=== PATIENT | male | born 1980 | race Caucasian/White ===

== ENCOUNTER 2020-07-23 18:09 | Inpatient (IN) | payer OTHER ==
[2020-07-23 19:35] VITALS: BMI 22.8
[2020-07-23] MEDS ORDERED: guaiFENesin 200 MG/10 ML 10 ML UNIT-DOSE CUPS PO PRN (20:08)
[2020-07-23] MEDS ORDERED: ACETAMINOPHEN 325 MG TABLET (FP) PO PRN ×2 (20:08)
[2020-07-23] MEDS ORDERED: MAGNESIUM HYDROX 2400MG/30ML ORAL SUSPENSION 30 ML CUP PO PRN (20:08)
[2020-07-23] MEDS ORDERED: NALOXONE (NARCAN) HCL 4 MG/0.1 ML SPRAY NS PRN (20:08)
[2020-07-23] MEDS ORDERED: IBUPROFEN 400 MG TABLET (FP) PO PRN (20:08)
[2020-07-23] MEDS ORDERED: NALOXONE HCL 0.4 MG/ML VIAL IM PRN (20:08)
[2020-07-23] MEDS ORDERED: MENTHOL/PHENOL 1 EACH UD MM PRN (20:08)
[2020-07-23] MEDS ORDERED: ONDANSETRON *ODT* 4 MG TABLET SL PRN (20:08)
[2020-07-23] MEDS ORDERED: MAG HYDROX/AL HYDROX/SIMETH 30 ML UNIT-DOSE CUP PO PRN (20:08)
[2020-07-23] MEDS ORDERED: P-EPHED 60MG/TRIPROLIDI 2.5MG TABLET PO PRN (20:08)
[2020-07-23] MEDS ORDERED: BISMUTH SUBSALICYLATE 524 MG/30 ML UD PO PRN (20:08)
[2020-07-23] MEDS ORDERED: DICYCLOMINE HCL 10 MG CAPSULE PO PRN (20:08)
[2020-07-23] MEDS ORDERED: MAGNESIUM CITRATE 300 ML BOTTLE PO PRN (20:08)
[2020-07-23] MEDS: MELATONIN 5 MG TABLETS PO SCH (22:23)
[2020-07-23] MEDS: GABAPENTIN 400 MG CAPSULE PO SCH (22:23)
[2020-07-23] MEDS: THIAMINE HCL 100 MG TABLET (FP) PO SCH (22:23)
[2020-07-24] MEDS: GABAPENTIN 400 MG CAPSULE PO SCH ×3 (05:14→22:00)
[2020-07-24] MEDS ORDERED: METHADONE HCL 10 MG TABLET PO SCH (07:45)
[2020-07-24] MEDS ORDERED: METHADONE 200 MG, METHADONE 10 MG PO ONE (08:00)
[2020-07-24] MEDS ORDERED: METHADONE HCL 10 MG TABLET ONE (08:45)
[2020-07-24] MEDS ORDERED: METHADONE HCL 40 MG DISPERSABLE TABLET ONE (08:46)
[2020-07-24] MEDS ORDERED: LORazepam 1 MG TABLET PO PRN (09:19)
[2020-07-24] MEDS: NICOTINE 21 MG/24 HOURS TOPICAL PATCH TD SCH (09:23)
[2020-07-24] MEDS: PRENATAL VITAMINS W/ FOLIC ACID TABLET (FP) PO SCH (09:25)
[2020-07-24 10:03] LABS: HEMATOCRIT 37.4 % (35.4-49); HEMOGLOBIN 12.7 GM/dL (11.7-16.9); MCH 28.9 pg (25.7-33.7); MCHC 34.1 g/dl (32.0-35.9); MEAN CELL VOLUME 84.6 fl (80-96); PLATELET COUNT 253 K/MM3 (134-434); RBC 4.42 M/mm3 (4.00-5.60); RDW 13.5 % (11.9-15.9); WHITE BLOOD COUNT 6.5 K/mm3 (4.0-10.0)
[2020-07-24 10:04] LABS: ALBUMIN 3.4 g/dl (3.4-5.0); CALCIUM 8.6 mg/dL (8.5-10.1)
[2020-07-24 10:05] LABS: BLOOD UREA NITROGEN 13.6 mg/dL (7-18)
[2020-07-24 10:07] LABS: BILIRUBIN,TOTAL 0.3 mg/dL (0.2-1)
[2020-07-24] MEDS: LORazepam 2 MG TABLET PO SCH ×3 (10:07→22:00)
[2020-07-24 10:08] LABS: CREATININE 0.7 mg/dL (0.55-1.3); TOT PROT 7.3 g/dl (6.4-8.2)
[2020-07-24] MEDS: THIAMINE HCL 100 MG TABLET (FP) PO SCH (22:01)
[2020-07-24] MEDS: MELATONIN 5 MG TABLETS PO SCH (22:01)
[2020-07-25] MEDS ORDERED: METHADONE HCL 10 MG TABLET ONE (05:03)
[2020-07-25] MEDS ORDERED: METHADONE HCL 40 MG DISPERSABLE TABLET ONE (05:04)
[2020-07-25] MEDS: METHADONE 200 MG, METHADONE 10 MG PO SCH (05:16)
[2020-07-25] MEDS: GABAPENTIN 400 MG CAPSULE PO SCH ×3 (05:16→22:14)
[2020-07-25] MEDS: LORazepam 2 MG TABLET PO SCH ×4 (05:17→22:15)
[2020-07-25] MEDS: PRENATAL VITAMINS W/ FOLIC ACID TABLET (FP) PO SCH (09:36)
[2020-07-25] MEDS: NICOTINE 21 MG/24 HOURS TOPICAL PATCH TD SCH (09:39)
[2020-07-25] MEDS: MELATONIN 5 MG TABLETS PO SCH (22:14)
[2020-07-25] MEDS: THIAMINE HCL 100 MG TABLET (FP) PO SCH (22:15)
[2020-07-25] MEDS: NICOTINE POLACRILEX 2 MG GUM BUC PRN (22:55)
[2020-07-26] MEDS ORDERED: METHADONE HCL 10 MG TABLET ONE (04:13)
[2020-07-26] MEDS ORDERED: METHADONE HCL 40 MG DISPERSABLE TABLET ONE (04:13)
[2020-07-26] MEDS: GABAPENTIN 400 MG CAPSULE PO SCH ×3 (05:15→22:17)
[2020-07-26] MEDS: LORazepam 1 MG TABLET PO SCH ×4 (05:15→22:17)
[2020-07-26] MEDS: METHADONE 200 MG, METHADONE 10 MG PO SCH (05:16)
[2020-07-26] MEDS: METHOCARBAMOL 500 MG TABLET PO PRN (10:46)
[2020-07-26] MEDS: NICOTINE 21 MG/24 HOURS TOPICAL PATCH TD SCH (10:46)
[2020-07-26] MEDS: PRENATAL VITAMINS W/ FOLIC ACID TABLET (FP) PO SCH (10:46)
[2020-07-26] MEDS: NICOTINE POLACRILEX 2 MG GUM BUC PRN (10:50)
[2020-07-26] MEDS: THIAMINE HCL 100 MG TABLET (FP) PO SCH (22:17)
[2020-07-26] MEDS: MELATONIN 5 MG TABLETS PO SCH (22:17)
[2020-07-27] MEDS ORDERED: LORazepam 0.5 MG TABLET PO PRN
[2020-07-27] MEDS ORDERED: METHADONE HCL 40 MG DISPERSABLE TABLET ONE (04:00)
[2020-07-27] MEDS ORDERED: METHADONE HCL 10 MG TABLET ONE (04:00)
[2020-07-27] MEDS: METHADONE 200 MG, METHADONE 10 MG PO SCH (05:14)
[2020-07-27] MEDS: GABAPENTIN 400 MG CAPSULE PO SCH ×3 (05:15→22:36)
[2020-07-27] MEDS: LORazepam 0.5 MG TABLET PO SCH ×4 (05:15→22:36)
[2020-07-27] MEDS: PRENATAL VITAMINS W/ FOLIC ACID TABLET (FP) PO SCH (10:10)
[2020-07-27] MEDS: METHOCARBAMOL 500 MG TABLET PO PRN (10:10)
[2020-07-27] MEDS: NICOTINE 21 MG/24 HOURS TOPICAL PATCH TD SCH (10:11)
[2020-07-27] MEDS: NICOTINE POLACRILEX 2 MG GUM BUC PRN (14:19)
[2020-07-27] MEDS: MELATONIN 5 MG TABLETS PO SCH (22:36)
[2020-07-27] MEDS: THIAMINE HCL 100 MG TABLET (FP) PO SCH (22:36)
[2020-07-27] MEDS: HYDROCORTISONE 1% TOPICAL CREAM 30 GM TUBE TP PRN (22:36)
[2020-07-28] MEDS ORDERED: METHADONE HCL 10 MG TABLET ONE (03:38)
[2020-07-28] MEDS ORDERED: METHADONE HCL 40 MG DISPERSABLE TABLET ONE (03:39)
[2020-07-28] MEDS ORDERED: LORazepam 0.5 MG TABLET PO ONE (05:00)
[2020-07-28] MEDS: GABAPENTIN 400 MG CAPSULE PO SCH (05:18)
[2020-07-28] MEDS: METHADONE 200 MG, METHADONE 10 MG PO SCH (05:18)
[2020-07-28 06:36] LABS: SARS-CoV-2 NAA Not Detected (Not Detected)
[2020-07-28] MEDS: HYDROCORTISONE 1% TOPICAL CREAM 30 GM TUBE TP PRN (07:27)
[2020-07-28] MEDS: NICOTINE 21 MG/24 HOURS TOPICAL PATCH TD SCH (09:44)
[2020-07-28] MEDS: PRENATAL VITAMINS W/ FOLIC ACID TABLET (FP) PO SCH (09:44)
[2020-07-28 09:48] VITALS: BP 117/72; PULSE 66; TEMP 97.1
== END 2020-07-28 09:50 | disposition home or self-care (01) | DRG 773 ==
LOC: YASAS 18:09 → Y3N 21:04 → UNDODISIN 07-24 16:30
PROVIDERS: ADMIT Allergy & Immunology; ATTEND Allergy & Immunology
PROC: HZ2ZZZZ Detoxification Services for Substance Abuse Treatment (ICD-10-PCS; principal; 2020-07-23)
DX: F10.230 Alcohol dependence with withdrawal, uncomplicated (principal); F11.23 Opioid dependence with withdrawal; F14.20 Cocaine dependence, uncomplicated; F17.210 Nicotine dependence, cigarettes, uncomplicated; F19.24 Other psychoactive substance dependence with psychoactive substance-induced mood disorder; G62.9 Polyneuropathy, unspecified; B02.9 Zoster without complications; Z86.19 Personal history of other infectious and parasitic diseases; Z90.81 Acquired absence of spleen; W19.XXXA Unspecified fall, initial encounter; Y93.89 Activity, other specified; Y92.239 Unspecified place in hospital as the place of occurrence of the external cause; Y99.8 Other external cause status; Z91.013 Allergy to seafood
CPT/HCPCS: 36415; 80053; 82962; 85027; 86780; 93005; 93010; C9803; U0003; U0005

== ENCOUNTER 2020-10-04 12:37 | Inpatient (IN) | payer OTHER ==
[2020-10-04 13:32] VITALS: BMI 23.8
[2020-10-04] MEDS ORDERED: METHOCARBAMOL 500 MG TABLET PO PRN (14:11)
[2020-10-04] MEDS ORDERED: ONDANSETRON *ODT* 4 MG TABLET SL PRN (14:11)
[2020-10-04] MEDS ORDERED: MAG HYDROX/AL HYDROX/SIMETH 30 ML UNIT-DOSE CUP PO PRN (14:11)
[2020-10-04] MEDS ORDERED: BISMUTH SUBSALICYLATE 262 MG/15 ML BTL PO PRN (14:11)
[2020-10-04] MEDS ORDERED: NICOTINE POLACRILEX 2 MG GUM BUC PRN (14:11)
[2020-10-04] MEDS ORDERED: MENTHOL/PHENOL 1 EACH UD MM PRN (14:11)
[2020-10-04] MEDS ORDERED: ACETAMINOPHEN 325 MG TABLET (FP) PO PRN ×2 (14:11)
[2020-10-04] MEDS ORDERED: MAGNESIUM CITRATE 300 ML BOTTLE PO PRN (14:11)
[2020-10-04] MEDS ORDERED: IBUPROFEN 400 MG TABLET (FP) PO PRN (14:11)
[2020-10-04] MEDS ORDERED: MAGNESIUM HYDROX 2400MG/30ML ORAL SUSPENSION 30 ML CUP PO PRN (14:11)
[2020-10-04] MEDS: hydrOXYzine PAMOATE 25 MG CAPSULE (FP) PO SCH ×2 (18:01→22:30)
[2020-10-04] MEDS ORDERED: LORazepam 1 MG TABLET PO PRN (18:43)
[2020-10-04] MEDS ORDERED: MELATONIN 5 MG TABLETS PO SCH (22:00)
[2020-10-04] MEDS ORDERED: THIAMINE HCL 100 MG TABLET (FP) PO SCH (22:00)
[2020-10-04] MEDS ORDERED: LORazepam 2 MG TABLET PO SCH (23:00)
[2020-10-05] MEDS ORDERED: IBUPROFEN 400 MG TABLET (FP) PO ONE (00:59)
[2020-10-05] MEDS ORDERED: GABAPENTIN 400 MG CAPSULE PO ONE (01:08)
[2020-10-05 06:38] VITALS: BP 107/71; PULSE 73; TEMP 97.8
[2020-10-05] MEDS ORDERED: methaDONE HCL 40 MG DISPERSABLE TABLET PO SCH (10:00)
[2020-10-05] MEDS ORDERED: NICOTINE 14 MG/24 HOURS TOPICAL PATCH TD SCH (10:00)
[2020-10-05] MEDS ORDERED: PRENATAL VITAMINS W/ FOLIC ACID TABLET (FP) PO SCH (10:00)
[2020-10-06] MEDS ORDERED: LORazepam 1 MG TABLET PO SCH (05:00)
[2020-10-07] MEDS ORDERED: LORazepam 0.5 MG TABLET PO PRN
[2020-10-07] MEDS ORDERED: LORazepam 0.5 MG TABLET PO SCH (05:00)
[2020-10-08] MEDS ORDERED: LORazepam 0.5 MG TABLET PO ONE (05:00)
== END 2020-10-05 05:10 | disposition left against medical advice (07) | DRG 770 ==
LOC: YASAS 12:37 → Y3N 15:05
PROVIDERS: ADMIT Allergy & Immunology; ATTEND Allergy & Immunology
PROC: HZ2ZZZZ Detoxification Services for Substance Abuse Treatment (ICD-10-PCS; principal; 2020-10-04)
DX: F10.230 Alcohol dependence with withdrawal, uncomplicated (principal); F11.20 Opioid dependence, uncomplicated; F14.20 Cocaine dependence, uncomplicated; F15.10 Other stimulant abuse, uncomplicated; F16.20 Hallucinogen dependence, uncomplicated; F12.20 Cannabis dependence, uncomplicated; F17.210 Nicotine dependence, cigarettes, uncomplicated; F39 Unspecified mood [affective] disorder; G62.9 Polyneuropathy, unspecified; Z86.19 Personal history of other infectious and parasitic diseases; Z91.013 Allergy to seafood
CPT/HCPCS: 93005; 93010; C9803; U0003; U0005

== ENCOUNTER 2021-09-12 11:10 | Inpatient (IN) | payer OTHER ==
[2021-09-12] MEDS ORDERED: MAGNESIUM CITRATE 300 ML BOTTLE PO PRN (11:57)
[2021-09-12] MEDS ORDERED: P-EPHED 60MG/TRIPROLIDI 2.5MG TABLET PO PRN (11:57)
[2021-09-12] MEDS ORDERED: IBUPROFEN 400 MG TABLET (FP) PO PRN (11:57)
[2021-09-12] MEDS ORDERED: LOPERAMIDE HCL 2 MG CAPSULE PO PRN (11:57)
[2021-09-12] MEDS ORDERED: ACETAMINOPHEN 325 MG TABLET (FP) PO PRN (11:57)
[2021-09-12] MEDS ORDERED: MAGNESIUM HYDROX 2400MG/30ML ORAL SUSPENSION 30 ML CUP PO PRN (11:57)
[2021-09-12] MEDS ORDERED: guaiFENesin 200 MG/10 ML 10 ML UNIT-DOSE CUPS PO PRN (11:57)
[2021-09-12] MEDS ORDERED: MAG HYDROX/AL HYDROX/SIMETH 30 ML UNIT-DOSE CUP PO PRN (11:57)
[2021-09-12 12:21] VITALS: BMI 25.8
[2021-09-12] MEDS ORDERED: IBUPROFEN 400 MG TABLET (FP) PO ONE (16:00)
[2021-09-12] MEDS ORDERED: diazePAM 5 MG TABLET ONE (16:00)
[2021-09-12] MEDS: diazePAM 5 MG TABLET PO PRN ×2 (16:03→20:45)
[2021-09-12] MEDS ORDERED: TUBERCULIN PPD 5 TU/0.1ML VIAL ID ONE (16:58)
[2021-09-12 16:59] LABS: HEMATOCRIT 42.1 % (35.4-49); HEMOGLOBIN 13.8 GM/dL (11.7-16.9); MCH 29.1 pg (25.7-33.7); MCHC 32.9 g/dl (32.0-35.9); MEAN CELL VOLUME 88.4 fl (80-96); MEAN PLT VOLUME 9.6 fl (7.5-11.1); PLATELET COUNT 295 10^3/uL (134-434); RBC 4.76 M/mm3 (4.00-5.60); RDW 15.1 % (11.9-15.9)
[2021-09-12 17:07] LABS: ALBUMIN 3.8 g/dl (3.4-5.0); CALCIUM 9.3 mg/dL (8.5-10.1)
[2021-09-12 17:08] LABS: BLOOD UREA NITROGEN 21.2 mg/dL (7-18)
[2021-09-12 17:10] LABS: CREATININE 0.9 mg/dL (0.55-1.3)
[2021-09-12 17:12] LABS: BILIRUBIN,TOTAL 0.7 mg/dL (0.2-1); TOT PROT 8.3 g/dl (6.4-8.2)
[2021-09-12 17:31] LABS: SYPHILIS W/ RPR CONF NON-REACTIVE (NONREACTIVE)
[2021-09-12] MEDS: PRENATAL VITAMINS W/ FOLIC ACID TABLET (FP) PO SCH (17:47)
[2021-09-12] MEDS: hydrOXYzine PAMOATE 25 MG CAPSULE (FP) PO SCH ×3 (17:48→21:54)
[2021-09-12] MEDS ORDERED: TENOFOVIR ALAFENAMIDE PO SCH ×2 (19:00→19:09)
[2021-09-12] MEDS ORDERED: [UNRECOGNIZED DRUG - OTHER] PO SCH ×2 (19:00→19:09)
[2021-09-12] MEDS ORDERED: ELVITEGRAVIR PO SCH ×2 (19:00→19:09)
[2021-09-12] MEDS ORDERED: EMTRICITABINE PO SCH ×2 (19:00→19:09)
[2021-09-12] MEDS ORDERED: COBICISTAT PO SCH ×2 (19:00→19:09)
[2021-09-12] MEDS: EMTRICITABINE PO SCH (19:20)
[2021-09-12] MEDS: TENOFOVIR ALAFENAMIDE PO SCH (19:20)
[2021-09-12] MEDS: COBICISTAT PO SCH (19:20)
[2021-09-12] MEDS: ELVITEGRAVIR PO SCH (19:20)
[2021-09-12] MEDS: [UNRECOGNIZED DRUG - OTHER] PO SCH (19:20)
[2021-09-12] MEDS ORDERED: ATORVASTATIN CA 40 MG TABLET (FP) ONE (20:53)
[2021-09-12 21:27] LABS: PH,URINE 5.5 (5.0-8.0); URINE APPEARANCE CLEAR; URINE BILIRUBIN NEGATIVE (NEGATIVE); URINE COLOR DK YELLOW; URINE GLUCOSE (UA) NEGATIVE (NEGATIVE); URINE KETONE TRACE (NEGATIVE); URINE LEUK ESTERASE NEGATIVE (NEGATIVE); URINE NITRITE NEGATIVE (NEGATIVE); URINE PROTEIN NEGATIVE (NEGATIVE)
[2021-09-12] MEDS: GABAPENTIN 400 MG CAPSULE PO SCH (21:53)
[2021-09-12] MEDS: THIAMINE HCL 100 MG TABLET (FP) PO SCH (21:54)
[2021-09-12] MEDS: CARVEDILOL 6.25 MG TABLET (FP) PO SCH (21:54)
[2021-09-12] MEDS: ATORVASTATIN CA 80 MG TABLET (FP) PO SCH (21:54)
[2021-09-12] MEDS: MELATONIN 5 MG TABLETS PO SCH (21:59)
[2021-09-13] MEDS: methaDONE HCL 40 MG DISPERSABLE TABLET PO SCH (05:45)
[2021-09-13] MEDS: hydrOXYzine PAMOATE 25 MG CAPSULE (FP) PO SCH ×5 (06:00→21:49)
[2021-09-13] MEDS: GABAPENTIN 400 MG CAPSULE PO SCH ×3 (06:00→21:48)
[2021-09-13] MEDS: diazePAM 5 MG TABLET PO PRN ×4 (06:02→19:07)
[2021-09-13] MEDS ORDERED: ELVITEG/COB/EMTRI/TENOF (GENVOYA) TABLET (NF) PO SCH (08:00)
[2021-09-13] MEDS ORDERED: PATIENT'S OWN MEDICATION (NON-FORMULARY) (Elviteg/Cob/Emtri/Tenof Alafen 1 TAB Tablet) PO SCH (08:00)
[2021-09-13] MEDS: CARVEDILOL 6.25 MG TABLET (FP) PO SCH ×2 (09:29→21:48)
[2021-09-13] MEDS: FAMOTIDINE 20 MG TABLET PO SCH (09:29)
[2021-09-13] MEDS: PRENATAL VITAMINS W/ FOLIC ACID TABLET (FP) PO SCH (09:29)
[2021-09-13] MEDS ORDERED: CLOPIDOGREL BISULFATE 75 MG TABLET (FP) PO SCH (10:00)
[2021-09-13] MEDS ORDERED: CARVEDILOL 6.25 MG TABLET (FP) PO SCH (10:00)
[2021-09-13] MEDS ORDERED: ASPIRIN 81 MG CHEWABLE TABLETS PO SCH (10:00)
[2021-09-13] MEDS: ATOVAQUONE 750 MG/5 ML (UNIT-DOSE PACKAGING) PO SCH (12:23)
[2021-09-13] MEDS: CLOTRIMAZOLE 1% CREAM TP SCH (12:23)
[2021-09-13] MEDS: EMTRICITABINE PO SCH (18:43)
[2021-09-13] MEDS: [UNRECOGNIZED DRUG - OTHER] PO SCH (18:43)
[2021-09-13] MEDS: TENOFOVIR ALAFENAMIDE PO SCH (18:43)
[2021-09-13] MEDS: ELVITEGRAVIR PO SCH (18:43)
[2021-09-13] MEDS: COBICISTAT PO SCH (18:43)
[2021-09-13] MEDS: ATORVASTATIN CA 80 MG TABLET (FP) PO SCH (21:48)
[2021-09-13] MEDS: THIAMINE HCL 100 MG TABLET (FP) PO SCH (21:49)
[2021-09-13] MEDS: MELATONIN 5 MG TABLETS PO SCH (21:49)
[2021-09-14] MEDS: CLOTRIMAZOLE 1% CREAM TP SCH ×4 (06:11→21:48)
[2021-09-14] MEDS: methaDONE HCL 40 MG DISPERSABLE TABLET PO SCH (06:12)
[2021-09-14] MEDS: GABAPENTIN 400 MG CAPSULE PO SCH ×3 (06:13→21:47)
[2021-09-14] MEDS: CLOPIDOGREL BISULFATE 75 MG TABLET (FP) PO SCH (06:14)
[2021-09-14] MEDS: diazePAM 5 MG TABLET PO PRN ×3 (06:15→15:30)
[2021-09-14] MEDS: ASPIRIN 81 MG CHEWABLE TABLETS PO SCH (06:15)
[2021-09-14] MEDS: hydrOXYzine PAMOATE 25 MG CAPSULE (FP) PO SCH ×5 (06:15→21:48)
[2021-09-14] MEDS: FAMOTIDINE 20 MG TABLET PO SCH (09:52)
[2021-09-14] MEDS: CARVEDILOL 6.25 MG TABLET (FP) PO SCH ×2 (09:52→21:48)
[2021-09-14] MEDS: PRENATAL VITAMINS W/ FOLIC ACID TABLET (FP) PO SCH (09:52)
[2021-09-14] MEDS: ATOVAQUONE 750 MG/5 ML (UNIT-DOSE PACKAGING) PO SCH (12:36)
[2021-09-14] MEDS ORDERED: NICOTINE 14 MG/24 HOURS TOPICAL PATCH TD SCH (15:00)
[2021-09-14] MEDS: NICOTINE 10 MG CARTRIDGE (INHALER) IH SCH (15:33)
[2021-09-14] MEDS: [UNRECOGNIZED DRUG - OTHER] PO SCH (17:43)
[2021-09-14] MEDS: TENOFOVIR ALAFENAMIDE PO SCH (17:43)
[2021-09-14] MEDS: COBICISTAT PO SCH (17:43)
[2021-09-14] MEDS: EMTRICITABINE PO SCH (17:43)
[2021-09-14] MEDS: ELVITEGRAVIR PO SCH (17:43)
[2021-09-14] MEDS ORDERED: ATORVASTATIN CA 40 MG TABLET (FP) ONE (18:59)
[2021-09-14] MEDS: ATORVASTATIN CA 80 MG TABLET (FP) PO SCH (21:47)
[2021-09-14] MEDS: MELATONIN 5 MG TABLETS PO SCH (21:48)
[2021-09-14] MEDS: THIAMINE HCL 100 MG TABLET (FP) PO SCH (21:48)
[2021-09-15] MEDS: ASPIRIN 81 MG CHEWABLE TABLETS PO SCH (06:46)
[2021-09-15] MEDS: hydrOXYzine PAMOATE 25 MG CAPSULE (FP) PO SCH ×5 (06:47→21:04)
[2021-09-15] MEDS: GABAPENTIN 400 MG CAPSULE PO SCH ×3 (06:47→21:03)
[2021-09-15] MEDS: CLOPIDOGREL BISULFATE 75 MG TABLET (FP) PO SCH (06:47)
[2021-09-15] MEDS: methaDONE HCL 40 MG DISPERSABLE TABLET PO SCH (06:48)
[2021-09-15] MEDS: diazePAM 5 MG TABLET PO PRN (07:39)
[2021-09-15] MEDS: FAMOTIDINE 20 MG TABLET PO SCH (09:51)
[2021-09-15] MEDS: PRENATAL VITAMINS W/ FOLIC ACID TABLET (FP) PO SCH (09:51)
[2021-09-15] MEDS: NICOTINE 10 MG CARTRIDGE (INHALER) IH SCH (09:52)
[2021-09-15] MEDS: CLOTRIMAZOLE 1% CREAM TP SCH ×2 (09:52→21:04)
[2021-09-15] MEDS: CARVEDILOL 6.25 MG TABLET (FP) PO SCH ×2 (09:52→21:03)
[2021-09-15] MEDS: LIDOCAINE 5% TOPICAL PATCH TP SCH (10:41)
[2021-09-15] MEDS: ATOVAQUONE 750 MG/5 ML (UNIT-DOSE PACKAGING) PO SCH (12:06)
[2021-09-15] MEDS: ELVITEGRAVIR PO SCH (18:19)
[2021-09-15] MEDS: COBICISTAT PO SCH (18:19)
[2021-09-15] MEDS: [UNRECOGNIZED DRUG - OTHER] PO SCH (18:19)
[2021-09-15] MEDS: EMTRICITABINE PO SCH (18:19)
[2021-09-15] MEDS: TENOFOVIR ALAFENAMIDE PO SCH (18:19)
[2021-09-15] MEDS: MELATONIN 5 MG TABLETS PO SCH (21:03)
[2021-09-15] MEDS: ATORVASTATIN CA 80 MG TABLET (FP) PO SCH (21:03)
[2021-09-15] MEDS: THIAMINE HCL 100 MG TABLET (FP) PO SCH (21:03)
[2021-09-15] MEDS: LIDOCAINE PATCH REMOVAL MC SCH (21:06)
[2021-09-16] MEDS: ASPIRIN 81 MG CHEWABLE TABLETS PO SCH (06:32)
[2021-09-16] MEDS: CLOPIDOGREL BISULFATE 75 MG TABLET (FP) PO SCH (06:32)
[2021-09-16] MEDS: GABAPENTIN 400 MG CAPSULE PO SCH ×3 (06:32→21:15)
[2021-09-16] MEDS: methaDONE HCL 40 MG DISPERSABLE TABLET PO SCH (06:33)
[2021-09-16] MEDS: hydrOXYzine PAMOATE 25 MG CAPSULE (FP) PO SCH ×5 (07:29→21:15)
[2021-09-16] MEDS: LIDOCAINE 5% TOPICAL PATCH TP SCH (10:15)
[2021-09-16] MEDS: FAMOTIDINE 20 MG TABLET PO SCH (10:15)
[2021-09-16] MEDS: CLOTRIMAZOLE 1% CREAM TP SCH ×2 (10:16→21:16)
[2021-09-16] MEDS: CARVEDILOL 6.25 MG TABLET (FP) PO SCH ×2 (10:17→21:15)
[2021-09-16] MEDS: PRENATAL VITAMINS W/ FOLIC ACID TABLET (FP) PO SCH (10:17)
[2021-09-16] MEDS: NICOTINE 10 MG CARTRIDGE (INHALER) IH SCH (10:17)
[2021-09-16] MEDS: TERBINAFINE HCL 250 MG PO SCH (12:46)
[2021-09-16] MEDS: ATOVAQUONE 750 MG/5 ML (UNIT-DOSE PACKAGING) PO SCH (12:47)
[2021-09-16] MEDS: ELVITEGRAVIR PO SCH (17:29)
[2021-09-16] MEDS: [UNRECOGNIZED DRUG - OTHER] PO SCH (17:29)
[2021-09-16] MEDS: TENOFOVIR ALAFENAMIDE PO SCH (17:29)
[2021-09-16] MEDS: EMTRICITABINE PO SCH (17:29)
[2021-09-16] MEDS: COBICISTAT PO SCH (17:29)
[2021-09-16] MEDS ORDERED: ATORVASTATIN CA 40 MG TABLET (FP) ONE (18:57)
[2021-09-16] MEDS: MELATONIN 5 MG TABLETS PO SCH (21:15)
[2021-09-16] MEDS: THIAMINE HCL 100 MG TABLET (FP) PO SCH (21:15)
[2021-09-16] MEDS: LIDOCAINE PATCH REMOVAL MC SCH (21:15)
[2021-09-16] MEDS: ATORVASTATIN CA 80 MG TABLET (FP) PO SCH (21:15)
[2021-09-17] MEDS: ASPIRIN 81 MG CHEWABLE TABLETS PO SCH (06:13)
[2021-09-17] MEDS: GABAPENTIN 400 MG CAPSULE PO SCH ×3 (06:14→21:29)
[2021-09-17] MEDS: CLOPIDOGREL BISULFATE 75 MG TABLET (FP) PO SCH (06:14)
[2021-09-17] MEDS: methaDONE HCL 40 MG DISPERSABLE TABLET PO SCH (06:14)
[2021-09-17] MEDS: hydrOXYzine PAMOATE 25 MG CAPSULE (FP) PO SCH ×5 (07:19→21:29)
[2021-09-17] MEDS: FAMOTIDINE 20 MG TABLET PO SCH (09:55)
[2021-09-17] MEDS: CARVEDILOL 6.25 MG TABLET (FP) PO SCH ×2 (09:57→21:30)
[2021-09-17] MEDS: NICOTINE 10 MG CARTRIDGE (INHALER) IH SCH (09:59)
[2021-09-17] MEDS: PRENATAL VITAMINS W/ FOLIC ACID TABLET (FP) PO SCH (09:59)
[2021-09-17] MEDS: LIDOCAINE 5% TOPICAL PATCH TP SCH (10:00)
[2021-09-17] MEDS: CLOTRIMAZOLE 1% CREAM TP SCH ×2 (10:00→21:30)
[2021-09-17] MEDS: TERBINAFINE HCL 250 MG PO SCH (10:49)
[2021-09-17] MEDS: ATOVAQUONE 750 MG/5 ML (UNIT-DOSE PACKAGING) PO SCH (12:18)
[2021-09-17] MEDS ORDERED: ATORVASTATIN CA 40 MG TABLET (FP) ONE (18:57)
[2021-09-17] MEDS: COBICISTAT PO SCH (19:07)
[2021-09-17] MEDS: [UNRECOGNIZED DRUG - OTHER] PO SCH (19:07)
[2021-09-17] MEDS: EMTRICITABINE PO SCH (19:07)
[2021-09-17] MEDS: TENOFOVIR ALAFENAMIDE PO SCH (19:07)
[2021-09-17] MEDS: ELVITEGRAVIR PO SCH (19:07)
[2021-09-17] MEDS: MELATONIN 5 MG TABLETS PO SCH (21:29)
[2021-09-17] MEDS: THIAMINE HCL 100 MG TABLET (FP) PO SCH (21:29)
[2021-09-17] MEDS: LIDOCAINE PATCH REMOVAL MC SCH (21:30)
[2021-09-17] MEDS: ATORVASTATIN CA 80 MG TABLET (FP) PO SCH (21:30)
[2021-09-18] MEDS: GABAPENTIN 400 MG CAPSULE PO SCH ×3 (05:44→21:24)
[2021-09-18] MEDS: CLOPIDOGREL BISULFATE 75 MG TABLET (FP) PO SCH (05:44)
[2021-09-18] MEDS: ASPIRIN 81 MG CHEWABLE TABLETS PO SCH (05:44)
[2021-09-18] MEDS: hydrOXYzine PAMOATE 25 MG CAPSULE (FP) PO SCH ×5 (05:45→21:24)
[2021-09-18] MEDS: methaDONE HCL 40 MG DISPERSABLE TABLET PO SCH (05:45)
[2021-09-18] MEDS: TERBINAFINE HCL 250 MG PO SCH (09:38)
[2021-09-18] MEDS: CARVEDILOL 6.25 MG TABLET (FP) PO SCH ×2 (09:38→21:24)
[2021-09-18] MEDS: FAMOTIDINE 20 MG TABLET PO SCH (09:38)
[2021-09-18] MEDS: CLOTRIMAZOLE 1% CREAM TP SCH ×2 (09:39→21:35)
[2021-09-18] MEDS: PRENATAL VITAMINS W/ FOLIC ACID TABLET (FP) PO SCH (09:39)
[2021-09-18] MEDS: LIDOCAINE 5% TOPICAL PATCH TP SCH (09:39)
[2021-09-18] MEDS: NICOTINE 10 MG CARTRIDGE (INHALER) IH PRN ×2 (10:03→14:08)
[2021-09-18] MEDS: ATOVAQUONE 750 MG/5 ML (UNIT-DOSE PACKAGING) PO SCH (14:07)
[2021-09-18] MEDS: ELVITEGRAVIR PO SCH (17:28)
[2021-09-18] MEDS: TENOFOVIR ALAFENAMIDE PO SCH (17:28)
[2021-09-18] MEDS: [UNRECOGNIZED DRUG - OTHER] PO SCH (17:28)
[2021-09-18] MEDS: EMTRICITABINE PO SCH (17:28)
[2021-09-18] MEDS: COBICISTAT PO SCH (17:28)
[2021-09-18] MEDS: ATORVASTATIN CA 80 MG TABLET (FP) PO SCH (21:23)
[2021-09-18] MEDS: THIAMINE HCL 100 MG TABLET (FP) PO SCH (21:24)
[2021-09-18] MEDS: MELATONIN 5 MG TABLETS PO SCH (21:24)
[2021-09-18] MEDS: LIDOCAINE PATCH REMOVAL MC SCH (21:25)
[2021-09-19] MEDS: methaDONE HCL 40 MG DISPERSABLE TABLET PO SCH (06:13)
[2021-09-19] MEDS: hydrOXYzine PAMOATE 25 MG CAPSULE (FP) PO SCH ×5 (06:13→22:10)
[2021-09-19] MEDS: ASPIRIN 81 MG CHEWABLE TABLETS PO SCH (06:13)
[2021-09-19] MEDS: GABAPENTIN 400 MG CAPSULE PO SCH ×3 (06:13→22:10)
[2021-09-19] MEDS: CLOPIDOGREL BISULFATE 75 MG TABLET (FP) PO SCH (06:13)
[2021-09-19] MEDS: NICOTINE 10 MG CARTRIDGE (INHALER) IH PRN ×3 (06:16→22:17)
[2021-09-19] MEDS: CARVEDILOL 6.25 MG TABLET (FP) PO SCH ×2 (10:07→22:14)
[2021-09-19] MEDS: PRENATAL VITAMINS W/ FOLIC ACID TABLET (FP) PO SCH (10:07)
[2021-09-19] MEDS: FAMOTIDINE 20 MG TABLET PO SCH (10:07)
[2021-09-19] MEDS: LIDOCAINE 5% TOPICAL PATCH TP SCH (10:07)
[2021-09-19] MEDS: CLOTRIMAZOLE 1% CREAM TP SCH ×2 (10:09→22:15)
[2021-09-19] MEDS: ATOVAQUONE 750 MG/5 ML (UNIT-DOSE PACKAGING) PO SCH (12:45)
[2021-09-19] MEDS: ELVITEG/COB/EMTRI/TENOF (GENVOYA) TABLET (NF) PO SCH (17:57)
[2021-09-19] MEDS ORDERED: ATORVASTATIN CA 40 MG TABLET (FP) ONE (19:46)
[2021-09-19] MEDS: THIAMINE HCL 100 MG TABLET (FP) PO SCH (22:10)
[2021-09-19] MEDS: MELATONIN 5 MG TABLETS PO SCH (22:12)
[2021-09-19] MEDS: ATORVASTATIN CA 80 MG TABLET (FP) PO SCH (22:12)
[2021-09-19] MEDS: LIDOCAINE PATCH REMOVAL MC SCH (22:12)
[2021-09-20] MEDS: CLOPIDOGREL BISULFATE 75 MG TABLET (FP) PO SCH (06:08)
[2021-09-20] MEDS: ASPIRIN 81 MG CHEWABLE TABLETS PO SCH (06:08)
[2021-09-20] MEDS: GABAPENTIN 400 MG CAPSULE PO SCH ×3 (06:08→21:48)
[2021-09-20] MEDS: hydrOXYzine PAMOATE 25 MG CAPSULE (FP) PO SCH ×5 (06:09→22:01)
[2021-09-20] MEDS: methaDONE HCL 40 MG DISPERSABLE TABLET PO SCH (06:09)
[2021-09-20] MEDS: NICOTINE 10 MG CARTRIDGE (INHALER) IH PRN ×4 (06:36→21:51)
[2021-09-20] MEDS: PRENATAL VITAMINS W/ FOLIC ACID TABLET (FP) PO SCH (10:02)
[2021-09-20] MEDS: CLOTRIMAZOLE 1% CREAM TP SCH ×2 (10:03→21:52)
[2021-09-20] MEDS: LIDOCAINE 5% TOPICAL PATCH TP SCH (10:03)
[2021-09-20] MEDS: FAMOTIDINE 20 MG TABLET PO SCH (10:04)
[2021-09-20] MEDS: CARVEDILOL 6.25 MG TABLET (FP) PO SCH ×2 (10:04→21:51)
[2021-09-20] MEDS: ATOVAQUONE 750 MG/5 ML (UNIT-DOSE PACKAGING) PO SCH (12:07)
[2021-09-20] MEDS: ELVITEG/COB/EMTRI/TENOF (GENVOYA) TABLET (NF) PO SCH (18:03)
[2021-09-20] MEDS ORDERED: ATORVASTATIN CA 40 MG TABLET (FP) ONE (20:52)
[2021-09-20] MEDS: THIAMINE HCL 100 MG TABLET (FP) PO SCH (21:48)
[2021-09-20] MEDS: ATORVASTATIN CA 80 MG TABLET (FP) PO SCH (21:49)
[2021-09-20] MEDS: MELATONIN 5 MG TABLETS PO SCH (21:52)
[2021-09-20] MEDS: LIDOCAINE PATCH REMOVAL MC SCH (21:52)
[2021-09-21] MEDS: hydrOXYzine PAMOATE 25 MG CAPSULE (FP) PO SCH ×5 (06:18→22:17)
[2021-09-21] MEDS: CLOPIDOGREL BISULFATE 75 MG TABLET (FP) PO SCH (06:18)
[2021-09-21] MEDS: ASPIRIN 81 MG CHEWABLE TABLETS PO SCH (06:18)
[2021-09-21] MEDS: methaDONE HCL 40 MG DISPERSABLE TABLET PO SCH (06:19)
[2021-09-21] MEDS: GABAPENTIN 400 MG CAPSULE PO SCH ×3 (06:19→22:17)
[2021-09-21] MEDS: NICOTINE 10 MG CARTRIDGE (INHALER) IH PRN ×4 (06:21→17:59)
[2021-09-21] MEDS: CARVEDILOL 6.25 MG TABLET (FP) PO SCH ×2 (09:44→22:19)
[2021-09-21] MEDS: PRENATAL VITAMINS W/ FOLIC ACID TABLET (FP) PO SCH (09:44)
[2021-09-21] MEDS: FAMOTIDINE 20 MG TABLET PO SCH (09:44)
[2021-09-21] MEDS: CLOTRIMAZOLE 1% CREAM TP SCH ×2 (09:44→22:20)
[2021-09-21] MEDS: LIDOCAINE 5% TOPICAL PATCH TP SCH (09:44)
[2021-09-21] MEDS: ATOVAQUONE 750 MG/5 ML (UNIT-DOSE PACKAGING) PO SCH (11:56)
[2021-09-21] MEDS: ELVITEG/COB/EMTRI/TENOF (GENVOYA) TABLET (NF) PO SCH (17:59)
[2021-09-21] MEDS ORDERED: ATORVASTATIN CA 40 MG TABLET (FP) ONE (19:26)
[2021-09-21] MEDS: THIAMINE HCL 100 MG TABLET (FP) PO SCH (22:17)
[2021-09-21] MEDS: LIDOCAINE PATCH REMOVAL MC SCH (22:18)
[2021-09-21] MEDS: ATORVASTATIN CA 80 MG TABLET (FP) PO SCH (22:18)
[2021-09-21] MEDS: MELATONIN 5 MG TABLETS PO SCH (22:18)
[2021-09-22] MEDS: GABAPENTIN 400 MG CAPSULE PO SCH ×3 (05:55→21:33)
[2021-09-22] MEDS: hydrOXYzine PAMOATE 25 MG CAPSULE (FP) PO SCH ×5 (05:55→21:33)
[2021-09-22] MEDS: CLOPIDOGREL BISULFATE 75 MG TABLET (FP) PO SCH (05:55)
[2021-09-22] MEDS: ASPIRIN 81 MG CHEWABLE TABLETS PO SCH (05:55)
[2021-09-22] MEDS: methaDONE HCL 40 MG DISPERSABLE TABLET PO SCH (05:56)
[2021-09-22] MEDS: LIDOCAINE 5% TOPICAL PATCH TP SCH (10:26)
[2021-09-22] MEDS: CARVEDILOL 6.25 MG TABLET (FP) PO SCH ×2 (10:27→21:33)
[2021-09-22] MEDS: FAMOTIDINE 20 MG TABLET PO SCH (10:27)
[2021-09-22] MEDS: PRENATAL VITAMINS W/ FOLIC ACID TABLET (FP) PO SCH (10:27)
[2021-09-22] MEDS: CLOTRIMAZOLE 1% CREAM TP SCH ×2 (10:29→21:34)
[2021-09-22] MEDS: ATOVAQUONE 750 MG/5 ML (UNIT-DOSE PACKAGING) PO SCH (13:10)
[2021-09-22] MEDS: ELVITEG/COB/EMTRI/TENOF (GENVOYA) TABLET (NF) PO SCH (18:16)
[2021-09-22] MEDS: ATORVASTATIN CA 80 MG TABLET (FP) PO SCH (21:33)
[2021-09-22] MEDS: THIAMINE HCL 100 MG TABLET (FP) PO SCH (21:34)
[2021-09-22] MEDS: MELATONIN 5 MG TABLETS PO SCH (21:34)
[2021-09-22] MEDS: LIDOCAINE PATCH REMOVAL MC SCH (21:34)
[2021-09-23] MEDS: GABAPENTIN 400 MG CAPSULE PO SCH ×3 (06:00→21:43)
[2021-09-23] MEDS: CLOPIDOGREL BISULFATE 75 MG TABLET (FP) PO SCH (06:00)
[2021-09-23] MEDS: hydrOXYzine PAMOATE 25 MG CAPSULE (FP) PO SCH ×5 (06:01→22:24)
[2021-09-23] MEDS: methaDONE HCL 40 MG DISPERSABLE TABLET PO SCH (06:01)
[2021-09-23] MEDS: ASPIRIN 81 MG CHEWABLE TABLETS PO SCH (06:01)
[2021-09-23] MEDS: NICOTINE 10 MG CARTRIDGE (INHALER) IH PRN ×4 (06:04→21:43)
[2021-09-23] MEDS: FAMOTIDINE 20 MG TABLET PO SCH (09:48)
[2021-09-23] MEDS: CARVEDILOL 6.25 MG TABLET (FP) PO SCH ×2 (09:48→21:43)
[2021-09-23] MEDS: PRENATAL VITAMINS W/ FOLIC ACID TABLET (FP) PO SCH (09:48)
[2021-09-23] MEDS: LIDOCAINE 5% TOPICAL PATCH TP SCH (09:49)
[2021-09-23] MEDS: CLOTRIMAZOLE 1% CREAM TP SCH ×2 (09:50→22:24)
[2021-09-23] MEDS: ATOVAQUONE 750 MG/5 ML (UNIT-DOSE PACKAGING) PO SCH (12:08)
[2021-09-23] MEDS: ELVITEG/COB/EMTRI/TENOF (GENVOYA) TABLET (NF) PO SCH (18:23)
[2021-09-23] MEDS: THIAMINE HCL 100 MG TABLET (FP) PO SCH (21:43)
[2021-09-23] MEDS: MELATONIN 5 MG TABLETS PO SCH (21:43)
[2021-09-23] MEDS: ATORVASTATIN CA 80 MG TABLET (FP) PO SCH (21:43)
[2021-09-23] MEDS: LIDOCAINE PATCH REMOVAL MC SCH (22:24)
[2021-09-24] MEDS: CLOPIDOGREL BISULFATE 75 MG TABLET (FP) PO SCH (06:11)
[2021-09-24] MEDS: NICOTINE 10 MG CARTRIDGE (INHALER) IH PRN ×4 (06:11→21:29)
[2021-09-24] MEDS: ASPIRIN 81 MG CHEWABLE TABLETS PO SCH (06:11)
[2021-09-24] MEDS: hydrOXYzine PAMOATE 25 MG CAPSULE (FP) PO SCH ×5 (06:12→21:30)
[2021-09-24] MEDS: methaDONE HCL 40 MG DISPERSABLE TABLET PO SCH (06:12)
[2021-09-24] MEDS: GABAPENTIN 400 MG CAPSULE PO SCH ×3 (06:12→21:28)
[2021-09-24] MEDS: CARVEDILOL 6.25 MG TABLET (FP) PO SCH ×2 (10:41→21:29)
[2021-09-24] MEDS: LIDOCAINE 5% TOPICAL PATCH TP SCH (10:41)
[2021-09-24] MEDS: FAMOTIDINE 20 MG TABLET PO SCH (10:42)
[2021-09-24] MEDS: PRENATAL VITAMINS W/ FOLIC ACID TABLET (FP) PO SCH (10:42)
[2021-09-24] MEDS: CLOTRIMAZOLE 1% CREAM TP SCH ×2 (10:52→21:30)
[2021-09-24] MEDS: ATOVAQUONE 750 MG/5 ML (UNIT-DOSE PACKAGING) PO SCH (14:09)
[2021-09-24] MEDS: ELVITEG/COB/EMTRI/TENOF (GENVOYA) TABLET (NF) PO SCH (17:10)
[2021-09-24] MEDS: THIAMINE HCL 100 MG TABLET (FP) PO SCH (21:28)
[2021-09-24] MEDS: ATORVASTATIN CA 80 MG TABLET (FP) PO SCH (21:28)
[2021-09-24] MEDS: MELATONIN 5 MG TABLETS PO SCH (21:29)
[2021-09-24] MEDS: LIDOCAINE PATCH REMOVAL MC SCH (21:30)
[2021-09-25] MEDS: GABAPENTIN 400 MG CAPSULE PO SCH ×3 (07:03→21:20)
[2021-09-25] MEDS: CLOPIDOGREL BISULFATE 75 MG TABLET (FP) PO SCH (07:03)
[2021-09-25] MEDS: methaDONE HCL 40 MG DISPERSABLE TABLET PO SCH (07:03)
[2021-09-25] MEDS: ASPIRIN 81 MG CHEWABLE TABLETS PO SCH (07:03)
[2021-09-25] MEDS: hydrOXYzine PAMOATE 25 MG CAPSULE (FP) PO SCH ×5 (07:13→21:20)
[2021-09-25] MEDS: NICOTINE 10 MG CARTRIDGE (INHALER) IH PRN ×3 (08:57→21:20)
[2021-09-25] MEDS: FAMOTIDINE 20 MG TABLET PO SCH (09:41)
[2021-09-25] MEDS: LIDOCAINE 5% TOPICAL PATCH TP SCH (09:41)
[2021-09-25] MEDS: PRENATAL VITAMINS W/ FOLIC ACID TABLET (FP) PO SCH (09:41)
[2021-09-25] MEDS: CARVEDILOL 6.25 MG TABLET (FP) PO SCH ×2 (09:42→21:19)
[2021-09-25] MEDS: CLOTRIMAZOLE 1% CREAM TP SCH ×2 (09:42→21:21)
[2021-09-25] MEDS: ATOVAQUONE 750 MG/5 ML (UNIT-DOSE PACKAGING) PO SCH (11:33)
[2021-09-25] MEDS: ELVITEG/COB/EMTRI/TENOF (GENVOYA) TABLET (NF) PO SCH (17:06)
[2021-09-25] MEDS: ATORVASTATIN CA 80 MG TABLET (FP) PO SCH (21:19)
[2021-09-25] MEDS: THIAMINE HCL 100 MG TABLET (FP) PO SCH (21:20)
[2021-09-25] MEDS: MELATONIN 5 MG TABLETS PO SCH (21:20)
[2021-09-25] MEDS: LIDOCAINE PATCH REMOVAL MC SCH (21:21)
[2021-09-26] MEDS: ASPIRIN 81 MG CHEWABLE TABLETS PO SCH (06:04)
[2021-09-26] MEDS: GABAPENTIN 400 MG CAPSULE PO SCH ×3 (06:04→21:26)
[2021-09-26] MEDS: CLOPIDOGREL BISULFATE 75 MG TABLET (FP) PO SCH (06:05)
[2021-09-26] MEDS: hydrOXYzine PAMOATE 25 MG CAPSULE (FP) PO SCH ×5 (06:05→21:29)
[2021-09-26] MEDS: methaDONE HCL 40 MG DISPERSABLE TABLET PO SCH (06:05)
[2021-09-26] MEDS: NICOTINE 10 MG CARTRIDGE (INHALER) IH PRN ×4 (06:06→21:28)
[2021-09-26] MEDS: FAMOTIDINE 20 MG TABLET PO SCH (10:09)
[2021-09-26] MEDS: PRENATAL VITAMINS W/ FOLIC ACID TABLET (FP) PO SCH (10:09)
[2021-09-26] MEDS: CLOTRIMAZOLE 1% CREAM TP SCH ×2 (10:09→21:29)
[2021-09-26] MEDS: CARVEDILOL 6.25 MG TABLET (FP) PO SCH ×2 (10:09→21:27)
[2021-09-26] MEDS: LIDOCAINE 5% TOPICAL PATCH TP SCH (10:10)
[2021-09-26] MEDS: ATOVAQUONE 750 MG/5 ML (UNIT-DOSE PACKAGING) PO SCH (13:03)
[2021-09-26] MEDS: ELVITEG/COB/EMTRI/TENOF (GENVOYA) TABLET (NF) PO SCH (17:53)
[2021-09-26] MEDS ORDERED: ATORVASTATIN CA 40 MG TABLET (FP) ONE (20:08)
[2021-09-26] MEDS: ATORVASTATIN CA 80 MG TABLET (FP) PO SCH (21:26)
[2021-09-26] MEDS: MELATONIN 5 MG TABLETS PO SCH (21:27)
[2021-09-26] MEDS: THIAMINE HCL 100 MG TABLET (FP) PO SCH (21:27)
[2021-09-26] MEDS: LIDOCAINE PATCH REMOVAL MC SCH (21:27)
[2021-09-27] MEDS: methaDONE HCL 40 MG DISPERSABLE TABLET PO SCH (06:08)
[2021-09-27] MEDS: ASPIRIN 81 MG CHEWABLE TABLETS PO SCH (06:08)
[2021-09-27] MEDS: CLOPIDOGREL BISULFATE 75 MG TABLET (FP) PO SCH (06:08)
[2021-09-27] MEDS: GABAPENTIN 400 MG CAPSULE PO SCH ×3 (06:08→21:38)
[2021-09-27] MEDS: hydrOXYzine PAMOATE 25 MG CAPSULE (FP) PO SCH ×5 (06:18→21:40)
[2021-09-27] MEDS: LIDOCAINE 5% TOPICAL PATCH TP SCH (09:38)
[2021-09-27] MEDS: CARVEDILOL 6.25 MG TABLET (FP) PO SCH ×2 (09:38→21:38)
[2021-09-27] MEDS: FAMOTIDINE 20 MG TABLET PO SCH (09:39)
[2021-09-27] MEDS: PRENATAL VITAMINS W/ FOLIC ACID TABLET (FP) PO SCH (09:39)
[2021-09-27] MEDS: CLOTRIMAZOLE 1% CREAM TP SCH ×2 (09:39→21:40)
[2021-09-27] MEDS: NICOTINE 10 MG CARTRIDGE (INHALER) IH PRN ×3 (09:40→18:03)
[2021-09-27] MEDS: ATOVAQUONE 750 MG/5 ML (UNIT-DOSE PACKAGING) PO SCH (14:36)
[2021-09-27] MEDS: ELVITEG/COB/EMTRI/TENOF (GENVOYA) TABLET (NF) PO SCH (17:43)
[2021-09-27] MEDS: ATORVASTATIN CA 80 MG TABLET (FP) PO SCH (21:38)
[2021-09-27] MEDS: MELATONIN 5 MG TABLETS PO SCH (21:39)
[2021-09-27] MEDS: THIAMINE HCL 100 MG TABLET (FP) PO SCH (21:39)
[2021-09-27] MEDS: LIDOCAINE PATCH REMOVAL MC SCH (21:40)
[2021-09-28] MEDS: GABAPENTIN 400 MG CAPSULE PO SCH ×3 (06:07→21:17)
[2021-09-28] MEDS: ASPIRIN 81 MG CHEWABLE TABLETS PO SCH (06:08)
[2021-09-28] MEDS: CLOPIDOGREL BISULFATE 75 MG TABLET (FP) PO SCH (06:08)
[2021-09-28] MEDS: methaDONE HCL 40 MG DISPERSABLE TABLET PO SCH (06:08)
[2021-09-28] MEDS: hydrOXYzine PAMOATE 25 MG CAPSULE (FP) PO SCH ×5 (06:08→21:18)
[2021-09-28] MEDS: NICOTINE 10 MG CARTRIDGE (INHALER) IH PRN ×4 (06:10→19:09)
[2021-09-28] MEDS: FAMOTIDINE 20 MG TABLET PO SCH (10:26)
[2021-09-28] MEDS: PRENATAL VITAMINS W/ FOLIC ACID TABLET (FP) PO SCH (10:26)
[2021-09-28] MEDS: CLOTRIMAZOLE 1% CREAM TP SCH ×2 (10:27→21:19)
[2021-09-28] MEDS: LIDOCAINE 5% TOPICAL PATCH TP SCH (10:27)
[2021-09-28] MEDS: CARVEDILOL 6.25 MG TABLET (FP) PO SCH ×2 (10:27→21:17)
[2021-09-28] MEDS: ATOVAQUONE 750 MG/5 ML (UNIT-DOSE PACKAGING) PO SCH (14:58)
[2021-09-28] MEDS: ELVITEG/COB/EMTRI/TENOF (GENVOYA) TABLET (NF) PO SCH (17:15)
[2021-09-28] MEDS: MELATONIN 5 MG TABLETS PO SCH (21:17)
[2021-09-28] MEDS: THIAMINE HCL 100 MG TABLET (FP) PO SCH (21:17)
[2021-09-28] MEDS: ATORVASTATIN CA 80 MG TABLET (FP) PO SCH (21:17)
[2021-09-28] MEDS: LIDOCAINE PATCH REMOVAL MC SCH (21:18)
[2021-09-29] MEDS: CLOPIDOGREL BISULFATE 75 MG TABLET (FP) PO SCH (06:01)
[2021-09-29] MEDS: ASPIRIN 81 MG CHEWABLE TABLETS PO SCH (06:01)
[2021-09-29] MEDS: methaDONE HCL 40 MG DISPERSABLE TABLET PO SCH (06:02)
[2021-09-29] MEDS: GABAPENTIN 400 MG CAPSULE PO SCH ×3 (06:02→21:53)
[2021-09-29] MEDS: hydrOXYzine PAMOATE 25 MG CAPSULE (FP) PO SCH ×5 (06:03→21:54)
[2021-09-29] MEDS: NICOTINE 10 MG CARTRIDGE (INHALER) IH PRN ×4 (06:05→18:16)
[2021-09-29] MEDS: CARVEDILOL 6.25 MG TABLET (FP) PO SCH ×2 (09:50→21:52)
[2021-09-29] MEDS: LIDOCAINE 5% TOPICAL PATCH TP SCH (09:50)
[2021-09-29] MEDS: FAMOTIDINE 20 MG TABLET PO SCH (09:51)
[2021-09-29] MEDS: CLOTRIMAZOLE 1% CREAM TP SCH ×2 (09:51→21:54)
[2021-09-29] MEDS: PRENATAL VITAMINS W/ FOLIC ACID TABLET (FP) PO SCH (09:51)
[2021-09-29] MEDS: ATOVAQUONE 750 MG/5 ML (UNIT-DOSE PACKAGING) PO SCH (13:40)
[2021-09-29] MEDS: ELVITEG/COB/EMTRI/TENOF (GENVOYA) TABLET (NF) PO SCH (18:06)
[2021-09-29] MEDS: ATORVASTATIN CA 80 MG TABLET (FP) PO SCH (21:53)
[2021-09-29] MEDS: THIAMINE HCL 100 MG TABLET (FP) PO SCH (21:53)
[2021-09-29] MEDS: MELATONIN 5 MG TABLETS PO SCH (21:53)
[2021-09-29] MEDS: LIDOCAINE PATCH REMOVAL MC SCH (21:54)
[2021-09-30] MEDS: ASPIRIN 81 MG CHEWABLE TABLETS PO SCH (05:59)
[2021-09-30] MEDS: CLOPIDOGREL BISULFATE 75 MG TABLET (FP) PO SCH (05:59)
[2021-09-30] MEDS: methaDONE HCL 40 MG DISPERSABLE TABLET PO SCH (05:59)
[2021-09-30] MEDS: GABAPENTIN 400 MG CAPSULE PO SCH ×3 (05:59→21:35)
[2021-09-30] MEDS: NICOTINE 10 MG CARTRIDGE (INHALER) IH PRN ×5 (06:01→21:49)
[2021-09-30] MEDS: hydrOXYzine PAMOATE 25 MG CAPSULE (FP) PO SCH ×5 (06:01→21:36)
[2021-09-30] MEDS: PRENATAL VITAMINS W/ FOLIC ACID TABLET (FP) PO SCH (09:50)
[2021-09-30] MEDS: FAMOTIDINE 20 MG TABLET PO SCH (09:50)
[2021-09-30] MEDS: CARVEDILOL 6.25 MG TABLET (FP) PO SCH ×3 (09:50→22:00)
[2021-09-30] MEDS: LIDOCAINE 5% TOPICAL PATCH TP SCH (09:51)
[2021-09-30] MEDS: METHOCARBAMOL 500 MG TABLET PO PRN ×2 (09:54→15:17)
[2021-09-30] MEDS: CLOTRIMAZOLE 1% CREAM TP SCH ×2 (10:50→21:36)
[2021-09-30] MEDS: ATOVAQUONE 750 MG/5 ML (UNIT-DOSE PACKAGING) PO SCH (13:01)
[2021-09-30] MEDS: ELVITEG/COB/EMTRI/TENOF (GENVOYA) TABLET (NF) PO SCH (18:07)
[2021-09-30] MEDS: MELATONIN 5 MG TABLETS PO SCH (21:35)
[2021-09-30] MEDS: THIAMINE HCL 100 MG TABLET (FP) PO SCH (21:36)
[2021-09-30] MEDS: ATORVASTATIN CA 80 MG TABLET (FP) PO SCH (21:36)
[2021-09-30] MEDS: LIDOCAINE PATCH REMOVAL MC SCH (21:36)
[2021-10-01] MEDS: CLOPIDOGREL BISULFATE 75 MG TABLET (FP) PO SCH (06:01)
[2021-10-01] MEDS: methaDONE HCL 40 MG DISPERSABLE TABLET PO SCH (06:01)
[2021-10-01] MEDS: ASPIRIN 81 MG CHEWABLE TABLETS PO SCH (06:01)
[2021-10-01] MEDS: GABAPENTIN 400 MG CAPSULE PO SCH ×3 (06:01→21:46)
[2021-10-01] MEDS: NICOTINE 10 MG CARTRIDGE (INHALER) IH PRN ×2 (06:03→14:05)
[2021-10-01] MEDS: hydrOXYzine PAMOATE 25 MG CAPSULE (FP) PO SCH ×2 (07:00→09:50)
[2021-10-01] MEDS: LIDOCAINE 5% TOPICAL PATCH TP SCH (09:42)
[2021-10-01] MEDS: CARVEDILOL 6.25 MG TABLET (FP) PO SCH ×2 (09:43→21:46)
[2021-10-01] MEDS: METHOCARBAMOL 500 MG TABLET PO PRN ×2 (09:43→17:07)
[2021-10-01] MEDS: FAMOTIDINE 20 MG TABLET PO SCH (09:43)
[2021-10-01] MEDS: PRENATAL VITAMINS W/ FOLIC ACID TABLET (FP) PO SCH (09:44)
[2021-10-01] MEDS: CLOTRIMAZOLE 1% CREAM TP SCH ×2 (09:50→21:48)
[2021-10-01] MEDS ORDERED: hydrOXYzine PAMOATE 25 MG CAPSULE (FP) PO PRN (09:58)
[2021-10-01] MEDS: ATOVAQUONE 750 MG/5 ML (UNIT-DOSE PACKAGING) PO SCH (13:05)
[2021-10-01] MEDS: ELVITEG/COB/EMTRI/TENOF (GENVOYA) TABLET (NF) PO SCH (17:08)
[2021-10-01] MEDS: MELATONIN 5 MG TABLETS PO SCH (21:46)
[2021-10-01] MEDS: ATORVASTATIN CA 80 MG TABLET (FP) PO SCH (21:46)
[2021-10-01] MEDS: THIAMINE HCL 100 MG TABLET (FP) PO SCH (21:46)
[2021-10-01] MEDS: LIDOCAINE PATCH REMOVAL MC SCH (21:48)
[2021-10-02] MEDS: CLOPIDOGREL BISULFATE 75 MG TABLET (FP) PO SCH (05:43)
[2021-10-02] MEDS: methaDONE HCL 40 MG DISPERSABLE TABLET PO SCH (05:43)
[2021-10-02] MEDS: ASPIRIN 81 MG CHEWABLE TABLETS PO SCH (05:43)
[2021-10-02] MEDS: GABAPENTIN 400 MG CAPSULE PO SCH ×3 (05:43→21:20)
[2021-10-02] MEDS: NICOTINE 10 MG CARTRIDGE (INHALER) IH PRN ×4 (05:45→17:37)
[2021-10-02] MEDS: METHOCARBAMOL 500 MG TABLET PO PRN ×2 (06:42→18:30)
[2021-10-02] MEDS: CARVEDILOL 6.25 MG TABLET (FP) PO SCH ×2 (10:13→21:21)
[2021-10-02] MEDS: LIDOCAINE 5% TOPICAL PATCH TP SCH (10:13)
[2021-10-02] MEDS: FAMOTIDINE 20 MG TABLET PO SCH (10:14)
[2021-10-02] MEDS: CLOTRIMAZOLE 1% CREAM TP SCH ×2 (10:14→21:22)
[2021-10-02] MEDS: PRENATAL VITAMINS W/ FOLIC ACID TABLET (FP) PO SCH (10:14)
[2021-10-02] MEDS: ATOVAQUONE 750 MG/5 ML (UNIT-DOSE PACKAGING) PO SCH (13:14)
[2021-10-02] MEDS: ELVITEG/COB/EMTRI/TENOF (GENVOYA) TABLET (NF) PO SCH (17:38)
[2021-10-02] MEDS: ATORVASTATIN CA 80 MG TABLET (FP) PO SCH (21:20)
[2021-10-02] MEDS: THIAMINE HCL 100 MG TABLET (FP) PO SCH (21:21)
[2021-10-02] MEDS: MELATONIN 5 MG TABLETS PO SCH (21:21)
[2021-10-02] MEDS: LIDOCAINE PATCH REMOVAL MC SCH (21:22)
[2021-10-03] MEDS: ASPIRIN 81 MG CHEWABLE TABLETS PO SCH (06:03)
[2021-10-03] MEDS: GABAPENTIN 400 MG CAPSULE PO SCH ×3 (06:03→21:23)
[2021-10-03] MEDS: methaDONE HCL 40 MG DISPERSABLE TABLET PO SCH (06:03)
[2021-10-03] MEDS: CLOPIDOGREL BISULFATE 75 MG TABLET (FP) PO SCH (06:03)
[2021-10-03] MEDS: NICOTINE 10 MG CARTRIDGE (INHALER) IH PRN (06:04)
[2021-10-03] MEDS: FAMOTIDINE 20 MG TABLET PO SCH (09:43)
[2021-10-03] MEDS: LIDOCAINE 5% TOPICAL PATCH TP SCH ×2 (09:43→11:13)
[2021-10-03] MEDS: CARVEDILOL 6.25 MG TABLET (FP) PO SCH ×2 (09:43→21:22)
[2021-10-03] MEDS: PRENATAL VITAMINS W/ FOLIC ACID TABLET (FP) PO SCH (09:43)
[2021-10-03] MEDS: METHOCARBAMOL 500 MG TABLET PO PRN ×2 (09:44→21:25)
[2021-10-03] MEDS: CLOTRIMAZOLE 1% CREAM TP SCH ×2 (10:41→21:47)
[2021-10-03] MEDS: ATOVAQUONE 750 MG/5 ML (UNIT-DOSE PACKAGING) PO SCH (13:09)
[2021-10-03] MEDS: ELVITEG/COB/EMTRI/TENOF (GENVOYA) TABLET (NF) PO SCH (17:23)
[2021-10-03] MEDS: MELATONIN 5 MG TABLETS PO SCH (21:23)
[2021-10-03] MEDS: THIAMINE HCL 100 MG TABLET (FP) PO SCH (21:24)
[2021-10-03] MEDS: BACITRACIN 0.9 GM PACKET TP SCH (21:24)
[2021-10-03] MEDS: LIDOCAINE PATCH REMOVAL MC SCH (21:24)
[2021-10-04] MEDS: GABAPENTIN 400 MG CAPSULE PO SCH ×3 (06:02→22:03)
[2021-10-04] MEDS: ASPIRIN 81 MG CHEWABLE TABLETS PO SCH (06:02)
[2021-10-04] MEDS: CLOPIDOGREL BISULFATE 75 MG TABLET (FP) PO SCH (06:02)
[2021-10-04] MEDS: methaDONE HCL 40 MG DISPERSABLE TABLET PO SCH (06:03)
[2021-10-04] MEDS: NICOTINE 10 MG CARTRIDGE (INHALER) IH PRN ×4 (06:45→18:25)
[2021-10-04] MEDS: METHOCARBAMOL 500 MG TABLET PO PRN ×2 (06:46→13:43)
[2021-10-04] MEDS: BACITRACIN 0.9 GM PACKET TP SCH ×2 (09:43→22:04)
[2021-10-04] MEDS: FAMOTIDINE 20 MG TABLET PO SCH (09:44)
[2021-10-04] MEDS: CLOTRIMAZOLE 1% CREAM TP SCH ×2 (09:44→22:27)
[2021-10-04] MEDS: LIDOCAINE 5% TOPICAL PATCH TP SCH (09:44)
[2021-10-04] MEDS: CARVEDILOL 6.25 MG TABLET (FP) PO SCH ×2 (09:44→22:04)
[2021-10-04] MEDS: PRENATAL VITAMINS W/ FOLIC ACID TABLET (FP) PO SCH (09:45)
[2021-10-04] MEDS: ATOVAQUONE 750 MG/5 ML (UNIT-DOSE PACKAGING) PO SCH (12:04)
[2021-10-04] MEDS: ELVITEG/COB/EMTRI/TENOF (GENVOYA) TABLET (NF) PO SCH (18:26)
[2021-10-04 20:51] VITALS: RESP 18
[2021-10-04] MEDS: MELATONIN 5 MG TABLETS PO SCH (22:03)
[2021-10-04] MEDS: THIAMINE HCL 100 MG TABLET (FP) PO SCH (22:03)
[2021-10-04] MEDS: LIDOCAINE PATCH REMOVAL MC SCH (22:04)
[2021-10-05] MEDS: GABAPENTIN 400 MG CAPSULE PO SCH ×3 (05:57→21:53)
[2021-10-05] MEDS: CLOPIDOGREL BISULFATE 75 MG TABLET (FP) PO SCH (05:57)
[2021-10-05] MEDS: methaDONE HCL 40 MG DISPERSABLE TABLET PO SCH (05:57)
[2021-10-05] MEDS: ASPIRIN 81 MG CHEWABLE TABLETS PO SCH (05:57)
[2021-10-05] MEDS: NICOTINE 10 MG CARTRIDGE (INHALER) IH PRN ×5 (05:59→21:55)
[2021-10-05] MEDS: CARVEDILOL 6.25 MG TABLET (FP) PO SCH ×2 (09:47→21:53)
[2021-10-05] MEDS: BACITRACIN 0.9 GM PACKET TP SCH ×2 (09:47→21:57)
[2021-10-05] MEDS: LIDOCAINE 5% TOPICAL PATCH TP SCH (09:47)
[2021-10-05] MEDS: PRENATAL VITAMINS W/ FOLIC ACID TABLET (FP) PO SCH (09:47)
[2021-10-05] MEDS: METHOCARBAMOL 500 MG TABLET PO PRN (09:47)
[2021-10-05] MEDS: FAMOTIDINE 20 MG TABLET PO SCH (09:47)
[2021-10-05] MEDS: CLOTRIMAZOLE 1% CREAM TP SCH ×2 (09:48→21:53)
[2021-10-05] MEDS: ATOVAQUONE 750 MG/5 ML (UNIT-DOSE PACKAGING) PO SCH (11:53)
[2021-10-05] MEDS: ELVITEG/COB/EMTRI/TENOF (GENVOYA) TABLET (NF) PO SCH (17:48)
[2021-10-05] MEDS: THIAMINE HCL 100 MG TABLET (FP) PO SCH (21:52)
[2021-10-05] MEDS: MELATONIN 5 MG TABLETS PO SCH (21:52)
[2021-10-05] MEDS: LIDOCAINE PATCH REMOVAL MC SCH (21:54)
[2021-10-06] MEDS: methaDONE HCL 40 MG DISPERSABLE TABLET PO SCH (05:59)
[2021-10-06] MEDS: GABAPENTIN 400 MG CAPSULE PO SCH (05:59)
[2021-10-06] MEDS: CLOPIDOGREL BISULFATE 75 MG TABLET (FP) PO SCH (05:59)
[2021-10-06] MEDS: ASPIRIN 81 MG CHEWABLE TABLETS PO SCH (05:59)
[2021-10-06] MEDS: METHOCARBAMOL 500 MG TABLET PO PRN (05:59)
[2021-10-06 06:31] VITALS: BP 109/63; PULSE 67; TEMP 98.6
== END 2021-10-06 09:26 | disposition home or self-care (01) | DRG 772 ==
LOC: YASAS 11:10 → Y3W 12:33 → UNDODISIN 09-24 02:45
PROVIDERS: ADMIT Allergy & Immunology; ATTEND Psychiatry & Neurology Pain Medicine
PROC: HZ42ZZZ Group Counseling for Substance Abuse Treatment, Cognitive-Behavioral (ICD-10-PCS; principal; 2021-09-12)
DX: F11.20 Opioid dependence, uncomplicated (principal); F10.20 Alcohol dependence, uncomplicated; F14.20 Cocaine dependence, uncomplicated; F13.20 Sedative, hypnotic or anxiolytic dependence, uncomplicated; F19.24 Other psychoactive substance dependence with psychoactive substance-induced mood disorder; F41.9 Anxiety disorder, unspecified; Z21 Asymptomatic human immunodeficiency virus [HIV] infection status; G62.9 Polyneuropathy, unspecified; I25.10 Atherosclerotic heart disease of native coronary artery without angina pectoris; I25.2 Old myocardial infarction; M54.50 Low back pain, unspecified; S59.901A Unspecified injury of right elbow, initial encounter; S69.91XA Unspecified injury of right wrist, hand and finger(s), initial encounter; S09.91XA Unspecified injury of ear, initial encounter; Y04.0XXA Assault by unarmed brawl or fight, initial encounter; Y92.238 Other place in hospital as the place of occurrence of the external cause; Z87.891 Personal history of nicotine dependence; Z99.89 Dependence on other enabling machines and devices; Z86.69 Personal history of other diseases of the nervous system and sense organs; Z79.02 Long term (current) use of antithrombotics/antiplatelets; Z79.82 Long term (current) use of aspirin; Z28.310 Unvaccinated for COVID-19; Z28.21 Immunization not carried out because of patient refusal
CPT/HCPCS: 36415; 80053; 80061; 81003; 82550; 82553; 85027; 86780; 86803; 87522; C9803-CS; U0003; U0005

== ENCOUNTER 2023-04-15 17:50 | Inpatient (IN) | payer OTHER ==
[2023-04-15 18:46] VITALS: BMI 23.3
[2023-04-15] MEDS ORDERED: BENZOCAINE/MENTHOL (CHLORASEPTIC ) LOZENGE MM PRN (19:59)
[2023-04-15] MEDS ORDERED: guaiFENesin 600 MG TABLET.ER (FP) PO PRN (19:59)
[2023-04-15] MEDS ORDERED: LOPERAMIDE HCL 2 MG CAPSULE PO PRN (19:59)
[2023-04-15] MEDS ORDERED: NALOXONE HCL 0.4 MG/ML VIAL IM PRN (19:59)
[2023-04-15] MEDS ORDERED: BENZONATATE 200 MG CAPSULE PO PRN (19:59)
[2023-04-15] MEDS ORDERED: NALOXONE HCL (KLOXXADO) 8 MG SPRAY NS PRN (19:59)
[2023-04-15] MEDS ORDERED: POLYETHYLENE GLYCOL (HEALTHYLAX) 3350 17 GM PACKET PO PRN (19:59)
[2023-04-15] MEDS ORDERED: IBUPROFEN 600 MG TABLET (FP) PO PRN (19:59)
[2023-04-15] MEDS ORDERED: IBUPROFEN 400 MG TABLET (FP) PO PRN (19:59)
[2023-04-15] MEDS ORDERED: MAG HYDROX/AL HYDROX/SIMETH 30 ML UNIT-DOSE CUP PO PRN (19:59)
[2023-04-15] MEDS ORDERED: MELATONIN 5 MG TABLETS ONE (23:40)
[2023-04-15] MEDS: THIAMINE HCL 100 MG TABLET (FP) PO SCH (23:45)
[2023-04-15] MEDS: MELATONIN 5 MG TABLETS PO SCH (23:45)
[2023-04-16] MEDS ORDERED: TUBERCULIN PPD 5 TU/0.1ML VIAL ID ONE (06:27)
[2023-04-16] MEDS: methaDONE HCL 40 MG DISPERSABLE TABLET PO SCH (07:31)
[2023-04-16] MEDS: TUBERCULIN PPD 5 TU/0.1ML SYRINGE (IN PATIENT USE ONLY) ID ONE (07:31)
[2023-04-16] MEDS ORDERED: FAMOTIDINE 20 MG TABLET PO PRN (09:27)
[2023-04-16] MEDS ORDERED: GABAPENTIN 300 MG CAPSULE PO SCH ×2 (09:30→14:00)
[2023-04-16] MEDS ORDERED: ELVITEG/COB/EMTRI/TENOF (GENVOYA) TABLET PO SCH (10:00)
[2023-04-16] MEDS ORDERED: FAMOTIDINE 20 MG TABLET PO SCH (10:00)
[2023-04-16] MEDS: PRENATAL VITAMINS W/ FOLIC ACID TABLET (FP) PO SCH (10:11)
[2023-04-16] MEDS: CLOPIDOGREL BISULFATE 75 MG TABLET (FP) PO SCH (10:11)
[2023-04-16] MEDS: GABAPENTIN 300 MG CAPSULE PO ONE (10:11)
[2023-04-16 11:18] LABS: HEMATOCRIT 39.7 % (35.4-49); HEMOGLOBIN 12.9 GM/dL (11.7-16.9); MCHC 32.4 g/dl (32.0-35.9); MEAN CELL VOLUME 86.5 fl (80-96); MEAN PLT VOLUME 9.5 fl (7.5-11.1); PLATELET COUNT 257 10^3/uL (134-434); RDW 17.5 % (11.9-15.9); WHITE BLOOD COUNT 8.4 K/mm3 (4.0-10.0)
[2023-04-16 11:59] LABS: CHLORIDE 105 mmol/L (98-107); SODIUM 139 mmol/L (136-145)
[2023-04-16 12:05] LABS: ANION GAP 7 mmol/L (4-13); BLOOD UREA NITROGEN 15.4 mg/dL (7-18); CO2 26 mmol/L (21-32); GLUCOSE,RANDOM 75 mg/dL (74-106)
[2023-04-16 12:08] LABS: CREATININE 0.8 mg/dL (0.55-1.3); SGOT/AST 70 U/L (15-37); SGPT/ALT 28 U/L (13-61)
[2023-04-16 12:10] LABS: BILIRUBIN,TOTAL 0.3 mg/dL (0.2-1); TOT PROT 7.4 g/dl (6.4-8.2)
[2023-04-16 12:11] LABS: ALK PHOS 97 U/L (45-117)
[2023-04-16] MEDS: BICTEGRAV/EMTRICIT/TENOFOV (BIKTARVY) 50-200-25 MG TABLET PO SCH (13:14)
[2023-04-16] MEDS ORDERED: GABAPENTIN 400 MG CAPSULE PO SCH (14:00)
[2023-04-16 14:50] LABS: PH,URINE 5.5 (5.0-8.0); URINE APPEARANCE CLEAR; URINE BILIRUBIN NEGATIVE (NEGATIVE); URINE COLOR DK YELLOW; URINE GLUCOSE (UA) NEGATIVE (NEGATIVE); URINE KETONE NEGATIVE (NEGATIVE); URINE LEUK ESTERASE NEGATIVE (NEGATIVE); URINE NITRITE NEGATIVE (NEGATIVE); URINE PROTEIN NEGATIVE (NEGATIVE)
[2023-04-16] MEDS: GABAPENTIN 300 MG CAPSULE PO SCH (15:22)
[2023-04-16] MEDS: HYDROCORTISONE 1% TOPICAL CREAM 30 GM TUBE TP PRN (21:51)
[2023-04-16] MEDS ORDERED: ATORVASTATIN CA 80 MG TABLET (FP) PO SCH (22:00)
[2023-04-17] MEDS: MIRTAZAPINE 15 MG TABLET (FP) PO SCH (21:10)
[2023-04-19] MEDS: BICTEGRAV/EMTRICIT/TENOFOV (BIKTARVY) 50-200-25 MG TABLET PO SCH (13:10)
[2023-04-21] MEDS: MAGNESIUM HYDROX 2400MG/30ML ORAL SUSPENSION 30 ML CUP PO PRN (12:06)
[2023-04-23] MEDS: ACETAMINOPHEN 325 MG TABLET (FP) PO PRN (09:19)
[2023-04-27 06:31] VITALS: RESP 16
[2023-04-27] MEDS: ATORVASTATIN CA 80 MG TABLET (FP) PO SCH (21:06)
[2023-04-29 06:46] VITALS: BP 131/82; PULSE 58; TEMP 98.2
== END 2023-04-29 09:21 | disposition home or self-care (01) | DRG 772 ==
LOC: YASAS 17:50 → Y3E 22:53
PROVIDERS: ADMIT Allergy & Immunology; ATTEND Psychiatry & Neurology Pain Medicine
PROC: HZ42ZZZ Group Counseling for Substance Abuse Treatment, Cognitive-Behavioral (ICD-10-PCS; principal; 2023-04-15)
DX: F11.20 Opioid dependence, uncomplicated (principal); F14.10 Cocaine abuse, uncomplicated; F13.20 Sedative, hypnotic or anxiolytic dependence, uncomplicated; F12.20 Cannabis dependence, uncomplicated; F41.9 Anxiety disorder, unspecified; G62.9 Polyneuropathy, unspecified; Z21 Asymptomatic human immunodeficiency virus [HIV] infection status; I25.10 Atherosclerotic heart disease of native coronary artery without angina pectoris; I25.2 Old myocardial infarction; Z87.891 Personal history of nicotine dependence
CPT/HCPCS: 36415; 80053; 80307; 81003; 85027; 86780; 87635; 93005; 93010

== ENCOUNTER 2024-05-12 12:57 | Inpatient (IN) | payer OTHER ==
[2024-05-12 13:35] VITALS: BMI 20.3
[2024-05-12] MEDS ORDERED: NALOXONE (NARCAN) HCL 4 MG/0.1 ML SPRAY NS PRN (13:48)
[2024-05-12] MEDS ORDERED: IBUPROFEN 400 MG TABLET (FP) PO PRN (13:48)
[2024-05-12] MEDS ORDERED: ONDANSETRON *ODT* 4 MG TABLET SL PRN (13:48)
[2024-05-12] MEDS ORDERED: BENZOCAINE/MENTHOL (CHLORASEPTIC ) LOZENGE MM PRN (13:48)
[2024-05-12] MEDS ORDERED: LOPERAMIDE HCL 2 MG CAPSULE PO PRN (13:48)
[2024-05-12] MEDS ORDERED: MAG HYDROX/AL HYDROX/SIMETH 30 ML UNIT-DOSE CUP PO PRN (13:48)
[2024-05-12] MEDS ORDERED: IBUPROFEN 600 MG TABLET (FP) PO PRN (13:48)
[2024-05-12] MEDS ORDERED: BISMUTH SUBSALICYLATE 262 MG/15 ML BTL PO PRN (13:48)
[2024-05-12] MEDS ORDERED: BENZONATATE 200 MG CAPSULE PO PRN (13:48)
[2024-05-12] MEDS ORDERED: guaiFENesin 600 MG TABLET.ER (FP) PO PRN (13:48)
[2024-05-12] MEDS ORDERED: POLYETHYLENE GLYCOL (HEALTHYLAX) 3350 17 GM PACKET PO PRN (13:48)
[2024-05-12] MEDS: diazePAM 5 MG TABLET PO PRN (15:56)
[2024-05-12] MEDS: diazePAM 5 MG TABLET PO SCH (17:22)
[2024-05-12] MEDS: GABAPENTIN 300 MG CAPSULE PO SCH (22:26)
[2024-05-12] MEDS: ATORVASTATIN CA 80 MG TABLET (FP) PO SCH (22:27)
[2024-05-12] MEDS: MELATONIN 5 MG TABLETS PO SCH (22:27)
[2024-05-12] MEDS: THIAMINE 100 MG TABLET PO SCH (22:27)
[2024-05-12] MEDS: BICTEGRAV/EMTRICIT/TENOFOV (BIKTARVY) 50-200-25 MG TABLET PO SCH (22:44)
[2024-05-13] MEDS: METHOCARBAMOL 500 MG TABLET PO PRN (05:51)
[2024-05-13] MEDS: methaDONE HCL 10 MG TABLET PO SCH (06:17)
[2024-05-13] MEDS: DICYCLOMINE HCL 10 MG CAPSULE PO PRN (08:55)
[2024-05-13 09:25] LABS: HEMATOCRIT 40.9 % (35.4-49); HEMOGLOBIN 13.1 GM/dL (11.7-16.9); MCH 26.7 pg (25.7-33.7); MEAN CELL VOLUME 83.5 fl (80-96); MEAN PLT VOLUME 10.2 fl (7.5-11.1); PLATELET COUNT 154 10^3/uL (134-434); WHITE BLOOD COUNT 7.4 K/mm3 (4.0-10.0)
[2024-05-13 09:46] LABS: POTASSIUM 4.2 mmol/L (3.5-5.1)
[2024-05-13 09:57] LABS: CALCIUM 8.8 mg/dL (8.5-10.1)
[2024-05-13 09:59] LABS: ALBUMIN 3.1 g/dl (3.4-5.0); BLOOD UREA NITROGEN 10.7 mg/dL (7-18)
[2024-05-13] MEDS ORDERED: BICTEGRAV/EMTRICIT/TENOFOV (BIKTARVY) 50-200-25 MG TABLET PO SCH (10:00)
[2024-05-13 10:02] LABS: BILIRUBIN,TOTAL 0.8 mg/dL (0.2-1); CREATININE 0.8 mg/dL (0.55-1.3); TOT PROT 7.9 g/dl (6.4-8.2)
[2024-05-13] MEDS: FAMOTIDINE 20 MG TABLET PO SCH (10:10)
[2024-05-13] MEDS: ASPIRIN 81 MG CHEWABLE TABLETS PO SCH (10:10)
[2024-05-13] MEDS: PRENATAL VITAMINS W/ FOLIC ACID TABLET (FP) PO SCH (10:10)
[2024-05-13] MEDS: CLOPIDOGREL BISULFATE 75 MG TABLET (FP) PO SCH (10:10)
[2024-05-13] MEDS: ACETAMINOPHEN 325 MG TABLET (FP) PO PRN (18:28)
[2024-05-14] MEDS: diazePAM 5 MG TABLET PO SCH (05:26)
[2024-05-14] MEDS ORDERED: HYDROCORTISONE 1% TOPICAL CREAM 30 GM TUBE TP PRN (09:31)
[2024-05-15] MEDS: diazePAM 5 MG TABLET PO SCH (05:17)
[2024-05-16] MEDS: diazePAM 5 MG TABLET PO ONE (05:40)
[2024-05-16] MEDS: MAGNESIUM HYDROX 2400MG/30ML ORAL SUSPENSION 30 ML CUP PO PRN (06:08)
[2024-05-16] MEDS: HYDROCORTISONE 1% TOPICAL CREAM 30 GM TUBE TP SCH (11:58)
[2024-05-16 12:50] VITALS: BP 106/65; PULSE 84; RESP 18; TEMP 97.7
== END 2024-05-16 13:30 | disposition other institution (70) | DRG 773 ==
LOC: YASAS 12:57 → Y3N 14:29
PROVIDERS: ADMIT Allergy & Immunology; ATTEND Allergy & Immunology
PROC: HZ2ZZZZ Detoxification Services for Substance Abuse Treatment (ICD-10-PCS; principal; 2024-05-12)
DX: F10.230 Alcohol dependence with withdrawal, uncomplicated (principal); F11.20 Opioid dependence, uncomplicated; F14.20 Cocaine dependence, uncomplicated; F13.20 Sedative, hypnotic or anxiolytic dependence, uncomplicated; F12.20 Cannabis dependence, uncomplicated; F17.210 Nicotine dependence, cigarettes, uncomplicated; Z21 Asymptomatic human immunodeficiency virus [HIV] infection status; G62.9 Polyneuropathy, unspecified; I25.10 Atherosclerotic heart disease of native coronary artery without angina pectoris; I25.2 Old myocardial infarction; Z79.899 Other long term (current) drug therapy; Z87.891 Personal history of nicotine dependence
CPT/HCPCS: 36415; 71045-TC-FY; 80053; 80305; 80307; 85027; 86780; 87811; 93005; 93010

== ENCOUNTER 2024-05-16 13:34 | Inpatient (IN) | payer OTHER ==
[2024-05-16] MEDS ORDERED: NICOTINE POLACRILEX 4 MG LOZENGE BC PRN (16:01)
[2024-05-16] MEDS ORDERED: hydrOXYzine PAMOATE 25 MG CAPSULE (FP) PO PRN (16:01)
[2024-05-16] MEDS ORDERED: POLYETHYLENE GLYCOL (HEALTHYLAX) 3350 17 GM PACKET PO PRN (16:01)
[2024-05-16] MEDS ORDERED: BENZOCAINE/MENTHOL (CHLORASEPTIC ) LOZENGE MM PRN (16:01)
[2024-05-16] MEDS ORDERED: ACETAMINOPHEN 325 MG TABLET (FP) PO PRN (16:01)
[2024-05-16] MEDS ORDERED: NALOXONE HCL 0.4 MG/ML VIAL IVPUSH PRN (16:01)
[2024-05-16] MEDS ORDERED: IBUPROFEN 400 MG TABLET (FP) PO PRN (16:01)
[2024-05-16] MEDS ORDERED: guaiFENesin 600 MG TABLET.ER (FP) PO PRN (16:01)
[2024-05-16] MEDS ORDERED: BENZONATATE 200 MG CAPSULE PO PRN (16:01)
[2024-05-16] MEDS ORDERED: NICOTINE POLACRILEX 4 MG GUM BUC PRN (16:01)
[2024-05-16] MEDS ORDERED: NALOXONE (NARCAN) HCL 4 MG/0.1 ML SPRAY NS PRN (16:01)
[2024-05-16] MEDS ORDERED: LOPERAMIDE HCL 2 MG CAPSULE PO PRN (16:01)
[2024-05-16] MEDS ORDERED: MAG HYDROX/AL HYDROX/SIMETH 30 ML UNIT-DOSE CUP PO PRN (16:01)
[2024-05-16] MEDS: MELATONIN 5 MG TABLETS PO SCH (21:10)
[2024-05-16] MEDS: THIAMINE 100 MG TABLET PO SCH (21:10)
[2024-05-16] MEDS ORDERED: ATORVASTATIN CA 40 MG TABLET (FP) ONE (21:11)
[2024-05-16] MEDS: GABAPENTIN 300 MG CAPSULE PO SCH (21:11)
[2024-05-16] MEDS: BICTEGRAV/EMTRICIT/TENOFOV (BIKTARVY) 50-200-25 MG TABLET PO SCH (21:12)
[2024-05-16] MEDS: ATORVASTATIN CA 80 MG TABLET (FP) PO SCH (21:13)
[2024-05-17 05:08] VITALS: RESP 16
[2024-05-17] MEDS: METHOCARBAMOL 500 MG TABLET PO PRN (05:13)
[2024-05-17] MEDS ORDERED: methaDONE HCL 40 MG DISPERSABLE TABLET PO SCH (10:00)
[2024-05-17] MEDS: NICOTINE 14 MG/24 HOURS TOPICAL PATCH TD SCH (10:17)
[2024-05-17] MEDS: PRENATAL VITAMINS W/ FOLIC ACID TABLET (FP) PO SCH (10:18)
[2024-05-17] MEDS: CLOPIDOGREL BISULFATE 75 MG TABLET (FP) PO SCH (10:18)
[2024-05-17] MEDS: FAMOTIDINE 20 MG TABLET PO SCH (10:18)
[2024-05-17] MEDS: ASPIRIN 81 MG CHEWABLE TABLETS PO SCH (10:18)
[2024-05-17] MEDS: IBUPROFEN 600 MG TABLET (FP) PO PRN (10:25)
[2024-05-17] MEDS ORDERED: DOCUSATE SODIUM 100 MG CAPSULE (FP) PO PRN (16:35)
[2024-05-17] MEDS: HYDROCORTISONE 1% TOPICAL OINT 30 GM TUBE TP PRN (21:24)
[2024-05-18] MEDS: BISACODYL 5 MG TABLET.DR (FP) PO PRN (11:41)
[2024-05-18] MEDS: MAGNESIUM HYDROX 2400MG/30ML ORAL SUSPENSION 30 ML CUP PO PRN (17:51)
[2024-05-18] MEDS: MIRTAZAPINE 30 MG TABLET PO SCH (21:11)
[2024-05-24 05:06] VITALS: BP 129/78; PULSE 63; TEMP 97.3
== END 2024-05-24 09:40 | disposition home or self-care (01) | DRG 772 ==
LOC: YASAS 13:34 → Y3W 13:36
PROVIDERS: ADMIT Psychiatry & Neurology Pain Medicine; ATTEND Psychiatry & Neurology Pain Medicine
PROC: HZ42ZZZ Group Counseling for Substance Abuse Treatment, Cognitive-Behavioral (ICD-10-PCS; principal; 2024-05-16)
DX: F11.20 Opioid dependence, uncomplicated (principal); F14.20 Cocaine dependence, uncomplicated; F13.20 Sedative, hypnotic or anxiolytic dependence, uncomplicated; F12.20 Cannabis dependence, uncomplicated; F19.24 Other psychoactive substance dependence with psychoactive substance-induced mood disorder; F41.9 Anxiety disorder, unspecified; Z21 Asymptomatic human immunodeficiency virus [HIV] infection status; G62.9 Polyneuropathy, unspecified; G47.00 Insomnia, unspecified; I25.10 Atherosclerotic heart disease of native coronary artery without angina pectoris; I25.2 Old myocardial infarction; K59.00 Constipation, unspecified; L30.9 Dermatitis, unspecified; Z79.899 Other long term (current) drug therapy; Z87.891 Personal history of nicotine dependence